=== PATIENT | female | born 1950 | race Caucasian/White ===

== ENCOUNTER 2021-10-02 16:32 | Emergency (ER) | payer MEDICARE, OTHER ==
[2021-10-02 16:39] VITALS: BP 179/85
--- NOTE | 2021-10-02 16:45 | ED Integumentary General ---
General Stated Complaint: LEFT THUMB LACERATION History of Present Illness Date Seen by Provider: Oct 02, 2021 Time Seen by Provider: 16:40 Initial Comments 71-year-old female presents with a left thumb laceration. Patient reports that she was "rendering a hog" and sharpening a knife when it slipped and cut her left thumb. She cleaned it significant and came in. She has an approximate 2 and half centimeter laceration on the top of the left thumb just proximal to the interphalangeal joint. She does have range of motion. Her last tetanus was approximately 3 years ago Allergies and Home Medications Patient Home Medication List Home Medication List Reviewed: Yes Review of Systems Review of Systems Constitutional: no symptoms reported EENTM: no symptoms reported Respiratory: no symptoms reported Cardiovascular: no symptoms reported Gastrointestinal: no symptoms reported Genitourinary: no symptoms reported Skin: see HPI Psychiatric/Neurological: No Symptoms Reported Physical Exam Vital Signs Capillary Refill : General Appearance: WD/WN, no apparent distress Cardiovascular: normal peripheral pulses, regular rate, rhythm Extremities: normal range of motion, non-tender, normal inspection Neurologic/Psychiatric: alert, normal mood/affect, oriented x 3 Skin Problem Location: upper extremities (Left thumb) Skin Problem Character: linear (3 cm) Procedures/Interventions Wound Location: Upper Extremities Other Wound Location Left thumb Wound Length (cm): 3 Wound's Depth, Shape: linear Wound Explored: clean Other Closure Supply: Wound Adhesive Progress Wound was explored throughout the entire depth with full-thickness but not deep enough to get into a tendon. Patient asked that if we can put her in a immobilizer splint and glue it versus sutures. Patient reports that she does not like the reaction that she has to numbing medicine. I explained to her the possibility of more poor wound healing and care versus that with sutures. She voiced understanding and agreement and asked that we continue to just glue it. Her thumb was first immobilized with a finger immobilizer than wound was closely approximated with skin adhesive. I also put Steri-Strips over and then taped her some to the immobilizer again over the wound. Bleeding was controlled. Departure Impression Primary Impression: Laceration of left thumb without complication Qualified Codes: S61.012A - Laceration without foreign body of left thumb without damage to nail, initial encounter Disposition: 01 HOME, SELF-CARE Condition: Stable Departure-Patient Inst. Referrals: PILO PHELPS MD (PCP/Family) Primary Care Physician Patient Instructions: Laceration Repair With Glue ED Add. Discharge Instructions: Keep splint on for 5 days while wound heals You may clean with warm soapy water after approximately 48 hours Follow-up with your primary care provider as needed for recheck of wound МАРИНА HESTER DO Oct 02, 2021 16:44
== END 2021-10-02 17:10 | disposition home or self-care (01) ==
LOC: EDUNIT# 16:32 → ER FS 16:34
DX: S61.012A Laceration without foreign body of left thumb without damage to nail, initial encounter (principal); W26.0XXA Contact with knife, initial encounter
CPT/HCPCS: 99281